=== PATIENT | male | born 1970 | race African-American/Black ===

== ENCOUNTER 2024-03-31 13:27 | Emergency (ER) | payer MEDICAID, OTHER ==
[~2024-03-31] VITALS: Ht 154.9 cm; Wt 50.0 kg
[~2024-03-31 13:27] MED LIST: ALKA SELTZER
[2024-03-31 13:47] VITALS: O2SAT 94
[2024-03-31] MEDS ORDERED: POLY17PO3 MT (18:22)
[2024-03-31] MEDS ORDERED: AMOX1TAB16 MT (18:22)
[2024-03-31 18:49] VITALS: BP 128/78; PULSE 89; RESP 18; TEMP 36.83628; O2SAT 95
== END 2024-03-31 18:55 | disposition home or self-care (01) ==
LOC: ER 13:40
DX: K59.00 Constipation, unspecified (principal); R31.9 Hematuria, unspecified; J18.9 Pneumonia, unspecified organism
CPT/HCPCS: 74176; 99284

== ENCOUNTER 2024-06-21 12:01 | Emergency (ER) | payer MEDICARE, MEDICAID ==
[~2024-06-21] VITALS: Ht 160 cm; Wt 51.0 kg
[~2024-06-21 12:01] MED LIST changes: +AMOX1TAB16 MT; +POLY17PO3 MT
[2024-06-21 12:11] VITALS: TEMP 98.3; O2SAT 98
[2024-06-21] MEDS ORDERED: LEVO750T68 MT (13:20)
[2024-06-21 14:38] VITALS: BP 122/57; PULSE 84; RESP 17; O2SAT 97
== END 2024-06-21 14:42 | disposition home or self-care (01) ==
LOC: ER 12:01
DX: J18.8 Other pneumonia, unspecified organism (principal); Q90.9 Down syndrome, unspecified
CPT/HCPCS: 71045; 99283

== ENCOUNTER 2024-10-03 12:32 | Emergency (ER) | payer MEDICARE, MEDICAID ==
[~2024-10-03] VITALS: Ht 170.2 cm; Wt 79.0 kg
[~2024-10-03 12:32] MED LIST changes: +LEVO750T68 MT
[2024-10-03 12:51] VITALS: O2SAT 99
[2024-10-03] MEDS ORDERED: OFLO5DRO4 LEFT EAR (13:17)
[2024-10-03 13:30] VITALS: BP 119/72; PULSE 88; RESP 18; TEMP 36.8; O2SAT 99
== END 2024-10-03 13:31 | disposition home or self-care (01) ==
LOC: ER 12:32
DX: H60.92 Unspecified otitis externa, left ear (principal); Z98.890 Other specified postprocedural states; Z79.899 Other long term (current) drug therapy
CPT/HCPCS: 99283

== ENCOUNTER 2025-05-16 14:20 | Emergency (ER) | payer MEDICARE, MEDICAID ==
[~2025-05-16] VITALS: Ht 162.6 cm; Wt 66.0 kg
[~2025-05-16 14:20] MED LIST changes: +OFLO5DRO4 LEFT EAR
[2025-05-16 14:24] VITALS: O2SAT 100
[2025-05-16] MEDS ORDERED: AZIT250T12 MT (16:24)
[2025-05-16 16:38] VITALS: BP 112/68; PULSE 84; RESP 16; TEMP 36.7; O2SAT 100
== END 2025-05-16 16:40 | disposition home or self-care (01) ==
LOC: ER 14:20
DX: J18.9 Pneumonia, unspecified organism (principal); Q90.9 Down syndrome, unspecified
CPT/HCPCS: 71045; 99283

== ENCOUNTER 2025-06-24 14:05 | Emergency (ER) | payer MEDICARE, MEDICAID ==
[~2025-06-24] VITALS: Ht 160 cm; Wt 56.0 kg
[~2025-06-24 14:05] MED LIST changes: +AZIT250T12 MT
[2025-06-24 14:22] VITALS: O2SAT 99
[2025-06-24 16:48] LABS: CLARITY URINE TURBID (CLEAR); GLUCOSE URINE NEGATIVE (NEGATIVE); KETONES URINE NEGATIVE (NEGATIVE); LEUKOCYTE ESTERASE URINE 3+ (NEGATIVE); NITRITE URINE NEGATIVE (NEGATIVE); OCCULT BLOOD URINE 2+ (NEGATIVE); PH URINE 6.0 (4.5-8.0); PROTEIN URINE 2+ (NEGATIVE); SPECIFIC GRAVITY URINE 1.011 (1.005-1.030); UROBILINOGEN URINE 0.2 E.U./dL (0.2-1.0)
[2025-06-24] MEDS ORDERED: CEPH500C2 MT (16:50)
[2025-06-24 17:08] VITALS: BP 123/76; PULSE 89; RESP 18; TEMP 36.7; O2SAT 99
[2025-06-24 17:20] LABS: COLOR URINE STRAW (YELLOW)
[2025-06-24 17:28] LABS: WBC URINE TNTC /hpf (0-2)
[2025-06-24 17:30] LABS: BACTERIA URINE 2+; MUCUS URINE TRACE /lpf (NONE/TRACE); SQUAMOUS EPITHELIAL CELL URINE RARE /lpf (RARE/1+)
== END 2025-06-24 17:09 | disposition home or self-care (01) ==
LOC: ER 14:05
DX: N39.0 Urinary tract infection, site not specified (principal); Q90.9 Down syndrome, unspecified; N40.0 Benign prostatic hyperplasia without lower urinary tract symptoms
CPT/HCPCS: 81003; 99283